=== PATIENT | male | born 1965 | race Caucasian/White ===

== ENCOUNTER 2021-08-01 09:32 | Emergency (ER) | payer BC, OTHER ==
[~2021-08-01] VITALS: Ht 180.3 cm; Wt 79.4 kg
[2021-08-01 09:59] VITALS: BP 143/96
[2021-08-01] MEDS ORDERED: IPRATROPIUM BROM 0.5 MG/2.5ML INH SOL NEB ONE (10:15)
[2021-08-01] MEDS ORDERED: ALBUTEROL SULF 2.5 MG/0.5ML(0.5%) NEB SOLN NEB ONE (10:15)
== END 2021-08-01 10:51 | disposition home or self-care (01) ==
LOC: ER 09:32
DX: J20.9 Acute bronchitis, unspecified (principal); F41.1 Generalized anxiety disorder; F17.210 Nicotine dependence, cigarettes, uncomplicated
CPT/HCPCS: 71046; 93005; 94640; 99283; J7644